=== PATIENT | male | born 1965 | race Caucasian/White ===

== ENCOUNTER 2016-09-18 17:15 | Emergency (ER) | payer OTHER ==
[~2016-09-18] VITALS: Ht 172.7 cm; Wt 76.0 kg
[2016-09-18 17:38] VITALS: TEMP 36.7; Ht 172.7 cm; Wt 76.0 kg
[2016-09-18] MEDS ORDERED: SODIUM CHLORIDE 0.9% 1000ML 1,000 ML IV STA (17:50)
[2016-09-18] MEDS ORDERED: THIA100T11 PO (17:53)
[2016-09-18] MEDS ORDERED: ATV/1 PO (17:53)
[2016-09-18] MEDS ORDERED: SILD1TAB11 PO (17:53)
[2016-09-18] MEDS ORDERED: HYDR-5688 PO (17:53)
--- NOTE | 2016-09-18 18:13 | DIAGNOSTIC IMAGING REPORT ---
CHEST ONE VIEW PORTABLE HISTORY: EVALUATE ALTERED MENTAL STATUS/WEAKNESS COMPARISON: None. FINDINGS: No focal lung consolidations to suggest pneumonia. No evidence for pulmonary edema. No pleural effusions. No pneumothorax. The heart is normal in size. A few scattered tiny nodular densities within the upper lobes. The largest on the left measures 8 mm. These likely represent calcified granulomas. IMPRESSION: No acute process. Electronically signed by: Jacinto Rockwell M.D. 09/18/2016 6:11 PM Dictated Date/Time: 09/18/2016 6:10 PM
[2016-09-18 19:28] LABS: INR 1.4 (0.9-1.1); PARTIAL THROMBOPLASTIN RATIO 1.2
[2016-09-18 19:39] LABS: ACETAMINOPHEN < 2 ug/ml (10-30); ALT/SGPT 27 U/L (12-78); AST/SGOT 31 U/L (15-37); BLOOD UREA NITROGEN 9 mg/dl (7-18); BUN/CREATININE RATIO 10.7 (10-20); CALCIUM 8.9 mg/dl (8.5-10.1); CARBON DIOXIDE 27 mmol/L (21-32); CHLORIDE 102 mmol/L (98-107); CREATININE 0.85 mg/dl (0.60-1.40); GLUCOSE 113 mg/dl (70-99); MAGNESIUM 1.9 mg/dl (1.8-2.4); POTASSIUM 3.8 mmol/L (3.5-5.1); SODIUM 137 mmol/L (136-145)
[2016-09-18 19:45] LABS: ALB/GLOB RATIO 0.7 (0.9-2); ALKALINE PHOSPHATASE 96 U/L (45-117)
[2016-09-18 19:49] LABS: HEMATOCRIT 33.5 % (42-52); MEAN CELL VOLUME 87.5 fL (80-100); MEAN CORPUSCULAR HGB CONC 33.1 g/dl (32-36); MEAN PLATELET VOLUME 11.6 fL (7.4-10.4); PLATELET COUNT 79 K/uL (130-400); RED BLOOD COUNT 3.83 M/uL (4.7-6.1); WHITE BLOOD COUNT 3.73 K/uL (4.8-10.8)
[2016-09-18 19:50] LABS: BASO % 0.8 %; BASO ABS # 0.03 K/uL (0-0.2); COMPLETE YES; EOS % 1.1 %; LYMPH % 26.5 %; LYMPH ABS # 0.99 K/uL (1.2-3.4); MONO % 22.3 %; NEUT % 49.3 %; PLT ESTIMATE DECREASED
[2016-09-18 19:56] LABS: URINE APPEARANCE CLOUDY (CLEAR); URINE BILIRUBIN NEG (NEG); URINE COLOR YELLOW; URINE NITRITE NEG (NEG); URINE PH 6.5 (4.5-7.5); UROBILINOGEN NEG (NEG); ZZUR CULT IF INDIC CLEAN CATCH NO
[2016-09-18 19:57] LABS: MANUAL MICROSCOPIC REQUIRED? NO; REVIEW REQ? NO
--- NOTE | 2016-09-18 20:15 | EMERGENCY ROOM VISIT NOTE ---
History Report prepared by [place]: Arslan Heath Under the Supervision of: Dr. Surendra Rodriguez D.O. First contact with patient: 17:47 Chief Complaint: SEIZURE Stated Complaint: SEIZURE Nursing Triage Summary: Pt was brought in via ambulance ALS. EMS was called by Deonna Rouse who was transporting the pt from [place] to [facility]. The pt was at their facility for Detox from alcohol. Pts last drink was 9 days ago. Staff told EMS that they stopped at [facility] to get food. The pt was sitting down eating and went into a seizure. Staff reported that the seizure lasted 5 mins. EMS reported that when they arrived on scene the pt was sitting upright and alert/oriented. Pt states that he had a seizure about 6 months ago while trying to detox. Pt was stable during transport to hospital. History of Present Illness The patient is a 51 year old male who presents to the Emergency Room by EMS with complaints of a syncopal episode occurring just prior to arrival. He has a history of alcoholism and has not had a drink in 9 days. He states that he has been going through detox for the past four days. The patient's episode was witnessed by staffing at the detox facility who were transferring several patients from [place] to [place]. He was down for about 5 minutes. EMS on scene reported that the patient was alert and oriented upon their arrival. The patient does not remember the episode, but recalls feeling very tired and hungry before it occurred. He currently has no complaints. He did not hit his head or injure himself on the fall. The patient denies any headaches, but notes that he has has some mild right sided abdominal pain. He has a history of high blood pressure and gout. Source of History: patient Onset: just prior to arrival Quality: other (syncopal episode) Timing: other (episode) Associated Symptoms: + abdominal pain (right sided), No headache Review of Systems See HPI for pertinent positives & negatives. A total of 10 systems reviewed and were otherwise negative. Past Medical & Surgical Medical Problems: (1) Alcoholism (2) GERD (gastroesophageal reflux disease) (3) Gout (4) HTN (hypertension) Family History No pertinent family history stated. Social History Smoking Status: Current Every Day Smoker Alcohol Use: heavy (recovering alcoholic) Drug Use: none Current/Historical Medications Scheduled Sildenafil Citrate (Viagra), 25 MG PO PRN Thiamine Hcl (Vitamin B-1), 100 MG PO DAILY Scheduled PRN Hydrocodone/Acetaminophen 5MG/325MG ([place] 5MG/325MG), 1 TABLET PO for Pain Lorazepam (Ativan), 1 MG PO TID PRN for withdrawals Allergies Coded Allergies: No Known Allergies (Unverified , 09/18/16) Physical Exam Vital Signs Date Time Temp Pulse Resp B/P Pulse Ox O2 Delivery O2 Flow Rate FiO2 09/18/16 19:41 81 17 140/86 97 Room Air 09/18/16 17:38 36.7 92 17 137/88 94 Room Air 09/18/16 17:28 93 Physical Exam CONSTITUTIONAL/VITAL SIGNS: Reviewed / noted above. GENERAL: Non-toxic in appearance. INTEGUMENTARY: Warm, dry, and [place]. HEAD: Normocephalic. EYES: without scleral icterus or trauma. ENT/OROPHARYNX: clear and moist. LYMPHADENOPATHY/NECK: Is supple without lymphadenopathy or meningismus. RESPIRATORY: Lungs clear and equal. CARDIOVASCULAR: Regular rate and rhythm. GI/ABDOMEN: Soft and nontender. No organomegaly or pulsatile mass. No rebound or guarding. Normal bowel sounds. EXTREMITIES: Warm and well perfused. BACK: No CVA tenderness. NEUROLOGICAL: Intact without focal deficits. PSYCHIATRIC: normal affect. MUSCULOSKELETAL: Normally developed with good muscle tone. Medical Decision & Procedures ER Provider Diagnostic Interpretation: X ray results and stated below per my interpretation and radiology interpretation. CHEST ONE VIEW PORTABLE FINDINGS: No focal lung consolidations to suggest pneumonia. No evidence for pulmonary edema. No pleural effusions. No pneumothorax. The heart is normal in size. A few scattered tiny nodular densities within the upper lobes. The largest on the left measures 8 mm. These likely represent calcified granulomas. IMPRESSION: No acute process. Electronically signed by: Jacinto Rockwell M.D. Laboratory Results 09/18/16 19:05 Red Blood Count 3.83, Mean Corpuscular Volume 87.5, Mean Corpuscular Hemoglobin 29.0, Mean Corpuscular Hemoglobin Concent 33.1, Mean Platelet Volume 11.6, Neutrophils (%) (Auto) 49.3, Lymphocytes (%) (Auto) 26.5, Monocytes (%) (Auto) 22.3, Eosinophils (%) (Auto) 1.1, Basophils (%) (Auto) 0.8, Neutrophils # (Auto ) 1.84, Lymphocytes # (Auto) 0.99, Monocytes # (Auto) 0.83, Eosinophils # (Auto ) 0.04, Basophils # (Auto) 0.03 09/18/16 19:05 Test 09/18/16 19:05 09/18/16 19:37 White Blood Count 3.73 K/uL (4.8-10.8) Red Blood Count 3.83 M/uL (4.7-6.1) Hemoglobin 11.1 g/dL (14.0-18.0) Hematocrit 33.5 % (42-52) Mean Corpuscular Volume 87.5 fL (80-100) Mean Corpuscular Hemoglobin 29.0 pg (25-34) Mean Corpuscular Hemoglobin Concent 33.1 g/dl (32-36) Platelet Count 79 K/uL (130-400) Mean Platelet Volume 11.6 fL (7.4-10.4) Neutrophils (%) (Auto) 49.3 % Lymphocytes (%) (Auto) 26.5 % Monocytes (%) (Auto) 22.3 % Eosinophils (%) (Auto) 1.1 % Basophils (%) (Auto) 0.8 % Neutrophils # (Auto) 1.84 K/uL (1.4-6.5) Lymphocytes # (Auto) 0.99 K/uL (1.2-3.4) Monocytes # (Auto) 0.83 K/uL (0.11-0.59) Eosinophils # (Auto) 0.04 K/uL (0-0.5) Basophils # (Auto) 0.03 K/uL (0-0.2) RDW Standard Deviation 56.0 fL (36.4-46.3) RDW Coefficient of Variation 17.5 % (11.5-14.5) Immature Granulocyte % (Auto) 0.0 % Immature Granulocyte # (Auto) 0.00 K/uL (0.00-0.02) Platelet Estimate DECREASED Red Blood Cell Morphology Unremarkable Prothrombin Time 15.0 SECONDS (9.0-12.0) Prothromb Time International Ratio 1.4 (0.9-1.1) Activated Partial Thromboplast Time 31.4 SECONDS (21.0-31.0) Partial Thromboplastin Ratio 1.2 Anion Gap 8.0 mmol/L (3-11) Est Creatinine Clear Calc Drug Dose 101.7 ml/min Estimated GFR () 118.6 Estimated GFR (Non- 102.3 BUN/Creatinine Ratio 10.7 (10-20) Calcium Level 8.9 mg/dl (8.5-10.1) Magnesium Level 1.9 mg/dl (1.8-2.4) Total Bilirubin 0.8 mg/dl (0.2-1) Aspartate Amino Transf (AST/SGOT) 31 U/L (15-37) Alanine Aminotransferase (ALT/SGPT) 27 U/L (12-78) Alkaline Phosphatase 96 U/L (45-117) Total Creatine Kinase 51 U/L (39-308) Creatine Kinase MB < 0.5 ng/ml (0.5-3.6) Creatine Kinase MB Ratio (0-3.0) Troponin I < 0.015 ng/ml (0-0.045) Total Protein 8.2 gm/dl (6.4-8.2) Albumin 3.4 gm/dl (3.4-5.0) Globulin 4.8 gm/dl (2.5-4.0) Albumin/Globulin Ratio 0.7 (0.9-2) Lipase 139 U/L (73-393) Salicylates Level < 1.7 mg/dl (2.8-20) Acetaminophen Level < 2 ug/ml (10-30) Ethyl Alcohol mg/dL < 3.0 mg/dl (0-3) Urine Color YELLOW Urine Appearance CLOUDY (CLEAR) Urine pH 6.5 (4.5-7.5) Urine Specific [place] 1.010 (1.000-1.030) Urine Protein 1+ (NEG) Urine Glucose (UA) NEG (NEG) Urine Ketones NEG (NEG) Urine Occult Blood NEG (NEG) Urine Nitrite NEG (NEG) Urine Bilirubin NEG (NEG) Urine Urobilinogen NEG (NEG) Urine Leukocyte Esterase NEG (NEG) Urine WBC (Auto) 1-5 /hpf (0-5) Urine RBC (Auto) 0-4 /hpf (0-4) Urine Hyaline Casts (Auto) 1-5 /lpf (0-5) Urine Epithelial Cells (Auto) 10-20 /lpf (0-5) Urine Bacteria (Auto) NEG (NEG) Laboratory results as stated above per my review. Medications Administered Medications (Trade) Dose Ordered Sig/Nancy Route Start Time Stop Time Status Last Admin Dose Admin Sodium Chloride (Nss 1000ml) 1,000 ml @ 999 mls/hr Q1H1M STAT IV 09/18/16 17:50 09/18/16 18:50 DC 09/18/16 19:00 999 MLS/HR ED Course 174: Previous medical records were reviewed. The patient was evaluated in room B3. A complete history and physical examination was performed. 1750: Ordered NSS 1000 mL @ 999 mL/hr IV. 2009: On reevaluation, the patient is resting comfortably. I discussed the results and findings with the patient. He verbalized agreement of the treatment plan. He was discharged home. Medical Decision Differential includes acute cardiac dysrhythmia, microinfarction, CVA, TIA, dehydration, anemia, electrolyte disturbance, seizure, trauma, intracranial bleeding, acute vascular catastrophe, thoracic aortic dissection, PE, abdominal aortic aneurysm rupture. This is a 51-year-old male who presents to the ED with a chief complaint of a syncopal episode. The patient states that he was on his way to alcohol rehabilitation facility, when he stopped at a local convenience store and was ordering a sandwich. He states that the next thing he remembers, is that he was on the ground. The patient was unresponsive for about 5 minutes based on a third alliance party report. No one presented with the patient to stay with a saw. The patient was awake and alert when EMS arrived. He denies biting his tongue or incontinence. He denies any injuries or pain. The patient has no complaints at this time. His physical exam was completely normal. There is no evidence of trauma. Laboratory studies including a CBC, chemistry panel, troponin, lipase and urine did not show any abnormalities. A chest x-ray is negative for acute disease. EKG shows a normal sinus rhythm. The patient was told the results. He is felt to be stable for discharge. He'll be sent to the rehabilitation facility at this time. Impression Primary Impression: Syncope Scribe Attestation The scribe's documentation has been prepared under my direction and personally reviewed by me in its entirety. I confirm that the note above accurately reflects all work, treatment, procedures, and medical decision making performed by me. Departure Information Dispostion Home / Self-Care Patient Instructions A Signature Page, ED Syncope Vasovagal, My [facility] Additional Instructions Follow-up with your doctor for further care and evaluation in 1-2 weeks or as needed. Return to the emergency department for worsening or new symptoms or any concerns. You have been examined and treated today on an emergency basis only. This is not a substitute for, or an effort to provide, complete comprehensive medical care. It is impossible to recognize and treat all injuries or illnesses in a single emergency department visit. It is therefore important that you follow up closely with your doctor. Call as soon as possible for an appointment.
[2016-09-18 20:35] VITALS: BP 132/89; PULSE 85; O2SAT 100
[2016-09-22 12:33] LABS: LARGE PLATELETS 2+
== END 2016-09-18 20:39 | disposition home or self-care (01) ==
LOC: C.EDB 17:18
DX: R55 Syncope and collapse (principal); M10.9 Gout, unspecified; F10.20 Alcohol dependence, uncomplicated; K21.9 Gastro-esophageal reflux disease without esophagitis; I10 Essential (primary) hypertension; F17.210 Nicotine dependence, cigarettes, uncomplicated; Z79.899 Other long term (current) drug therapy